=== PATIENT | female | born 1985 | race Caucasian/White ===

== ENCOUNTER 2021-06-10 18:56 | Emergency (ER) | payer BC ==
[2021-06-10 20:35] LABS: HEMOGLOBIN 15.3 gm/dl (12.3-15.3); RED BLOOD COUNT 5.05 M/UL (4.00-5.10)
[2021-06-10 20:56] LABS: BUN/CREATININE RATIO 19 (0-10)
== END 2021-06-10 23:33 | disposition home or self-care (01) ==
LOC: ER1 18:56
PROVIDERS: Physician Assistant
DX: U07.1 COVID-19 (principal); J12.82 Pneumonia due to coronavirus disease 2019
CPT/HCPCS: 71045; 80053; 82150; 83690; 85025; 85379; 99285; J1100; Q9967